=== PATIENT | female | born 1980 | race Two or more races ===

== ENCOUNTER 2024-05-17 05:27 | Inpatient (IN) | payer OTHER ==
[2024-05-17] MEDS ORDERED: MIDAZOLAM HCL 2 MG/2 ML SINGLE DOSE VIAL ONE (07:54)
[2024-05-17] MEDS ORDERED: PROPOFOL 20 ML ONE ×2 (07:54→08:49)
[2024-05-17] MEDS ORDERED: ROCURONIUM BROMIDE 50 MG/5 ML VIAL ONE (07:54)
[2024-05-17] MEDS ORDERED: SUCCINYLCHOLINE CHLORIDE 200 MG/10 ML SYRINGE ONE (07:57)
[2024-05-17] MEDS: ceFAZolin SODIUM 1 GM VIAL IVPB ONE (08:36)
[2024-05-17] MEDS ORDERED: ROCURONIUM BROMIDE 50 MG/5 ML SYRINGE ONE (08:51)
[2024-05-17] MEDS ORDERED: SUGAMMADEX SODIUM 200 MG/2 ML VIAL ONE (09:23)
[2024-05-17] MEDS ORDERED: SENNOSIDES/DOCUSATE COMBO (SENNA PLUS) TABLET (UD) PO PRN (09:55)
[2024-05-17] MEDS ORDERED: IBUPROFEN 800 MG/8 ML IJ IVPB PRN (09:55)
[2024-05-17] MEDS ORDERED: PROMETHAZINE HCL 25 MG/1 ML VIAL IVPB PRN (10:05)
[2024-05-17] MEDS: DEXTROSE 5%-LACTATED RINGERS 1,000 ML IV SCH (10:14)
[2024-05-17] MEDS: CEFAZOLIN 2 GM in DEXTROSE 5%-WATER - 100 ML IVPB ONE (10:16)
[2024-05-17] MEDS: CEFAZOLIN 2 GM/D5W 2 GM/50 ML ML IVPB SCH (10:29)
[2024-05-17] MEDS ORDERED: ACETAMINOPHEN INJECTION 100 ML ONE (10:43)
[2024-05-17] MEDS: ACETAMINOPHEN 1000 MG/100 ML BAG IVPB PRN (10:44)
[2024-05-17] MEDS ORDERED: HYDROmorphone HCL CARPU-JECT 2 MG/1 ML DISP.SYRIN ONE (10:52)
[2024-05-17] MEDS: HYDROmorphone HCl 2 MG/ML VIAL IVPUSH SCH (10:54)
[2024-05-17] MEDS ORDERED: HYDROmorphone *PCA* 10MG/50ML DISP.SYRIN ONE (11:54)
[2024-05-17] MEDS: HYDROmorphone *PCA* 10MG/50ML DISP.SYRIN PCA SCH (11:59)
[2024-05-17] MEDS: ONDANSETRON 4 MG/2 ML VIAL IVPUSH PRN (18:04)
[2024-05-17] MEDS ORDERED: oxyCODONE HCL 5 MG TABLET PO PRN ×2 (21:55)
[2024-05-17 23:16] VITALS: RESP 18
[2024-05-18] MEDS: ACETAMINOPHEN 325 MG TABLET (FP) PO PRN (08:39)
[2024-05-18] MEDS ORDERED: BISACODYL 10 MG SUPP.RECT RC PRN (09:55)
[2024-05-18 10:11] LABS: BASO % 0.1 % (0-2.0); EOS % 0.5 % (0-4.5); HEMATOCRIT 29.4 % (32.4-45.2); HEMOGLOBIN 9.7 GM/dL (10.7-15.3); LYMPH % 14.8 % (8-40); MCH 25.4 pg (25.7-33.7); MCHC 33.1 g/dl (32.0-36.0); MEAN CELL VOLUME 76.7 fl (80-96); MEAN PLT VOLUME 6.9 fl (7.5-11.1); MONO % 6.7 % (3.8-10.2); NEUT % 77.9 % (42.8-82.8); PLATELET COUNT 348 10^3/uL (134-434); RBC 3.84 M/mm3 (3.60-5.2); RDW 16.5 % (11.6-15.6); WHITE BLOOD COUNT 10.5 K/mm3 (4.0-10.0)
[2024-05-18] MEDS: IBUPROFEN 600 MG TABLET (FP) PO PRN (23:52)
[2024-05-19 06:32] VITALS: TEMP 98.1
[2024-05-19 08:32] VITALS: BP 136/87; PULSE 90
[2024-05-19] MEDS: SIMETHICONE 80 MG TAB.CHEW (FP) PO PRN (10:18)
== END 2024-05-19 14:10 | disposition home or self-care (01) | DRG 743 ==
LOC: J2C 05:27 → J6S 12:48
PROVIDERS: ADMIT Obstetrics & Gynecology; ATTEND Obstetrics & Gynecology
PROC: 0DNW0ZZ Release Peritoneum, Open Approach (ICD-10-PCS; 2024-05-17)
PROC: 0UT50ZZ Resection of Right Fallopian Tube, Open Approach (ICD-10-PCS; 2024-05-17)
PROC: 0UT00ZZ Resection of Right Ovary, Open Approach (ICD-10-PCS; 2024-05-17)
PROC: 0UT90ZL Resection of Uterus, Supracervical, Open Approach (ICD-10-PCS; principal; 2024-05-17 08:00)
DX: D25.9 Leiomyoma of uterus, unspecified (principal); N92.0 Excessive and frequent menstruation with regular cycle; K66.0 Peritoneal adhesions (postprocedural) (postinfection); D27.0 Benign neoplasm of right ovary
CPT/HCPCS: 36415; 81025; 85025; 86850; 86900; 86901; 88307-TC; 94760; J0131